=== PATIENT | female | born 1990 | race Asian ===

== ENCOUNTER 2018-05-26 01:30 | Inpatient (IN) | payer SELFPAY ==
[~2018-05-26] VITALS: Ht 160 cm; Wt 70.3 kg
[2018-05-26] MEDS ORDERED: AMPICILLIN 2,000 MG VIAL ONE (02:21)
[2018-05-26] MEDS ORDERED: OXYTOCIN 20 UNITS in LACTATED RINGERS 1,000 ML IV SCH ×3 (03:00→05:30)
[2018-05-26] MEDS ORDERED: OXYTOCIN 20 UNITS/LR PREMIX 1,000 ML IV ONE (03:09)
[2018-05-26] MEDS ORDERED: INFLUENZA VIRUS VACCINE QUAD 0.5 ML SYR IMVAC PRN (04:30)
[2018-05-26] MEDS ORDERED: PNV91TAB10 PO (04:39)
[2018-05-26] MEDS ORDERED: FERR-252 PO (04:39)
[2018-05-26] MEDS ORDERED: IBUPROFEN 800 MG TAB PO PRN (04:40)
[2018-05-26] MEDS ORDERED: oxyCODONE/APAP 5/325 MG 1 TAB TAB PO PRN (04:40)
[2018-05-26] MEDS ORDERED: HYDROcodone/APAP 5/325 MG 1 TAB TAB PO PRN (04:40)
[2018-05-26] MEDS ORDERED: LACTATED RINGERS 1,000 ML IV SCH (04:40)
[2018-05-26] MEDS ORDERED: CALC500T2 PO (04:40)
[2018-05-26] MEDS ORDERED: BENZOCAINE/MENTHOL 20%-0.5% 60 GM CAN TP PRN (04:40)
[2018-05-26] MEDS ORDERED: MEASLES, MUMPS, AND RUBELLA 1 VIAL SQVAC PRN (04:40)
[2018-05-26] MEDS ORDERED: OXYTOCIN 10 UNITS/ML VIAL IM PRN (04:40)
[2018-05-26] MEDS ORDERED: METHYLERGONOVINE 0.2 MG/ML AMP IM PRN (04:40)
[2018-05-26] MEDS ORDERED: TEMAZEPAM 15 MG CAP PO PRN (04:40)
[2018-05-26] MEDS ORDERED: AMPICILLIN 2,000 MG in NACL 0.9% MINI-BAG PLUS 100 ML IV SCH (05:00)
[2018-05-26 05:02] VITALS: BP 120/69
--- NOTE | 2018-05-26 07:44 | NUR ---
PATIENT HAS BEEN SCREENED AND CATEGORIZED LOW NUTRITION RISK. PATIENT WILL BE SEEN WITHIN 7 DAYS OF ADMISSION. 06/01/[address]
[2018-05-26 11:19] LABS: ANION GAP 12.9 (8-16); CARBON DIOXIDE 22.7 mmol/L (21-32); POTASSIUM 3.6 mmol/L (3.5-5.1)
[2018-05-26 11:20] LABS: ALBUMIN 2.4 g/dL (3.4-5.0); CREATININE 0.7 mg/dL (0.6-1.3); TOTAL BILIRUBIN 0.3 mg/dL (0.0-1.0)
[2018-05-26 11:24] LABS: WHITE BLOOD COUNT (AUTO) 11.2 K/uL (4.8-10.8)
[2018-05-26 11:25] LABS: HEMATOCRIT 37.5 % (36-48); HEMOGLOBIN 12.3 g/dL (12.0-16.0); MEAN CORPUSCULAR HEMOGLOBIN 27 pg (27-31); MEAN CORPUSCULAR HGB CONC 33 g/dL (33-37); MEAN CORPUSCULAR VOLUME 82.1 fL (80-94); PLATELET COUNT (AUTO) 203 K/uL (140-450); RED BLOOD CELL COUNT(AUTO) 4.57 MIL/uL (4.20-5.40); RED CELL DISTRIBUTION WIDTH 13.7 % (11.6-13.7)
[2018-05-26 11:26] LABS: BASOPHILS % (AUTO) 0.2 % (0.0-2.0); EOSINOPHILS % (AUTO) 0.7 % (0.0-4.0); LYMPHOCYTES % (AUTO) 20.2 % (20.5-51.1); NEUTROPHILS % (AUTO) 70.9 % (42.2-75.2)
[2018-05-26 11:27] LABS: EOSINOPHILS # (AUTO) 0.1 K/uL (0-0.4); LYMPHOCYTES # (AUTO) 2.3 K/uL (2.5-16.5); MONOCYTES # (AUTO) 0.9 K/uL (0.8-1.0)
[2018-05-26 11:46] LABS: APPEARANCE,URINE CLEAR (CLEAR); BILIRUBIN,URINE NEGATIVE (NEGATIVE); BLOOD, URINE 3+ (NEGATIVE); COLOR,URINE YELLOW (YELLOW); LEUKOCYTE ESTERASE ,URINE 2+ (NEGATIVE); NITRITE, URINE NEGATIVE (NEGATIVE); PH,URINE 7.5 (5.0-9.0); UGLUCOSE NEGATIVE (NEGATIVE)
[2018-05-26 11:47] LABS: RBC,URINE 3-10 (FEW) /HPF (0-5)
[2018-05-26] MEDS ORDERED: DOCUSATE SOD/SENNA 50/8.6 MG 1 TAB PO SCH (21:00)
[2018-05-27 06:46] LABS: HEMATOCRIT 37.1 % (36-48)
[2018-05-27] MEDS: BENZONATATE 100 MG CAPLF PO PRN ×2 (09:03→14:29)
[2018-05-27] MEDS ORDERED: IBUP-2213 PO (13:23)
== END 2018-05-27 21:42 | disposition home or self-care (01) | DRG 807 ==
LOC: MLD 01:30 → MFCC 07:45
PROVIDERS: ADMIT Obstetrics & Gynecology; ATTEND Obstetrics & Gynecology
PROC: 10E0XZZ Delivery of Products of Conception, External Approach (ICD-10-PCS; principal; 2018-05-26)
PROC: 0HQ9XZZ Repair Perineum Skin, External Approach (ICD-10-PCS; 2018-05-26)
DX: O99.824 Streptococcus B carrier state complicating childbirth (principal); Z37.0 Single live birth; Z3A.37 37 weeks gestation of pregnancy; O70.0 First degree perineal laceration during delivery
CPT/HCPCS: 36415; 59409; 80053; 81001; 85018; 85025; 86592; 86886; 86900; 86901; 87086; 90658; 90715; J0290; J2590; J7120